=== PATIENT | male | born 1955 | race Caucasian/White ===

== ENCOUNTER → 2016-09-16 | Outpatient (CLI) | payer OTHER ==
[2016-05-01 11:00] VITALS: BP 125/64
[~2016-09-16] MED LIST: ASPI325T4 PO; CETI10CA PO; CETI10TA22 PO; CHOL10003 PO; CYAN10005 PO; GLUC1TAB26 PO; HYDR-2666 PO; MULT-690 PO; OMEG500C PO
[2016-09-16 12:43] LABS: BASO % 0 % (0-3); EOS % 2 % (0-3); HEMATOCRIT 44.7 % (39.0-53.0); LYMPH # 3.8 x10^3/uL (1.0-4.8); LYMPH % 42 % (24-48); MEAN CORPUSCULAR HEMOGLOBIN 32 pg (25-35); MEAN CORPUSCULAR HGB CONC 34 g/dL (31-37); MEAN CORPUSCULAR VOLUME 94 fL (79-100); MONO % 8 % (0-9); NEUT % 47 % (31-73); PLATELET COUNT 217 x10^3/uL (140-400); RED BLOOD COUNT 4.76 x10^6/uL (4.30-5.70); RED CELL DISTRIBUTION WIDTH 13.1 % (11.5-14.5); WHITE BLOOD COUNT 8.9 x10^3/uL (4.0-11.0)
--- NOTE | 2016-09-16 12:46 | EKG ---
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
[2016-09-16 12:49] LABS: ALBUMIN 3.7 g/dL (3.4-5.0); CALCIUM 9.4 mg/dL (8.5-10.1); GFR 75.7; POTASSIUM 4.1 mmol/L (3.5-5.1)
[2016-09-16 12:56] LABS: PROTHROMBIN TIME PATIENT 12.5 SEC (11.7-14.0)
[2016-09-16 12:57] LABS: BILIRUBIN,URINE NEGATIVE (NEG); GLUCOSE,URINE NEGATIVE (NEG); NITRITE,URINE NEGATIVE (NEG); PROTEIN,URINE NEGATIVE (NEG-TRACE); UROBILINOGEN,URINE 0.2 mg/dL (0.2 mg/dL)
[2016-09-16 13:09] LABS: BACTERIA,URINE 0 /HPF (0-FEW); RBC,URINE 0 /HPF (0-2); SQUAMOUS EPITHELIAL CELL,UR OCC /LPF; WBC,URINE 0 /HPF (0-4)
--- NOTE | 2016-09-16 13:30 | RAD ---
Chest, 2 views, 09/16/2016: History: Preop evaluation for shoulder surgery The heart size and pulmonary vascularity are normal. There is tortuosity of the thoracic aorta. No pulmonary infiltrates are seen. There is no evidence of pleural fluid. IMPRESSION: No acute cardiopulmonary abnormality is detected.
== END | disposition home or self-care (01) ==
LOC: SURGPAT 11:33
PROVIDERS: ATTEND Orthopaedic Surgery
DX: Z01.812 Encounter for preprocedural laboratory examination (principal)
CPT/HCPCS: 36415; 71020; 80048; 81001; 82040; 85027; 85610; 85651; 85730; 87086; 87641; 93005

== ENCOUNTER 2016-09-30 10:09 | Inpatient (IN) | payer OTHER ==
[~2016-09-30] VITALS: Ht 172.7 cm; Wt 114.8 kg
[~2016-09-30 10:09] MED LIST changes: +CEFAZOLIN 2GM PREMIX 50 ML IV PRN; +CELECOXIB 200 MG CAPSULE PO PRN; +FENTANYL PF 100 MCG/2 ML VIAL. IV PRN; +HYDROCODONE/APAP 7.5/325MG TABLET. PO PRN; +IV RINGERS,LACTATED 1000ML 1,000 ML IV SCH; +LIDOCAINE 1% 1 ML SYRINGE. ID PRN; +MORPHINE SULFATE 2 MG/ML DISP.SYRIN. IV PRN; +MORPHINE SULFATE 5 MG, KETOROLAC TROMETHAMINE 30 MG, ROPIVacaine 0.5% PF 60 ML, EPINEPH... INT ART ONE; +ONDANSETRON PF 4 MG/2 ML VIAL. IV PRN; +PROCHLORPERAZINE 10 MG/2 ML VIAL. IV PRN; +TRANEXAMIC ACID 1,000 MG in IV NS 50ML -- 1ST BAG INJ ONE; +TRANEXAMIC ACID 1,000 MG in IV NS 50ML -- 2ND BAG INJ ONE
[2016-09-30] MEDS ORDERED: FENTANYL PF 100 MCG/2 ML VIAL. ONE ×2 (10:21→14:46)
[2016-09-30] MEDS ORDERED: LIDOCAINE 2% 100 MG/5 ML DISP.SYRIN. ONE (10:21)
[2016-09-30] MEDS ORDERED: PROPOFOL 20 ML IV ONE (10:21)
[2016-09-30] MEDS ORDERED: SUCCINYLCHOLINE 200 MG/10 ML VIAL. ONE (10:22)
[2016-09-30] MEDS ORDERED: ROCURONIUM 50 MG/5 ML VIAL. ONE (10:22)
[2016-09-30] MEDS ORDERED: EPHEDRINE PF IN SALINE 50 MG/5 ML DISP.SYRIN. IV ONE (12:53)
[2016-09-30] MEDS ORDERED: MORPHINE SULFATE 10 MG/ML VIAL. ONE (13:01)
[2016-09-30] MEDS ORDERED: SEVOFLURANE > 120 MINUTES. IH ONE (13:21)
[2016-09-30] MEDS ORDERED: PHENYLEPHRINE in 0.9% NACL PF 1 MG/10 ML DISP.SYRIN. IV ONE (13:21)
[2016-09-30] MEDS ORDERED: DIPHENHYDRAMINE 50 MG/ML VIAL IV PRN (14:00)
[2016-09-30] MEDS ORDERED: PROCHLORPERAZINE 10 MG/2 ML VIAL. IV PRN (14:00)
[2016-09-30] MEDS ORDERED: MORPHINE SULFATE 4 MG/ML DISP.SYRIN. IV PRN (14:00)
[2016-09-30] MEDS ORDERED: MEPERIDINE PF 25 MG/ML VIAL. IV PRN (14:00)
[2016-09-30] MEDS ORDERED: HYDROMORPHONE 2 MG/ML VIAL. IV PRN (14:00)
[2016-09-30] MEDS ORDERED: FENTANYL PF 100 MCG/2 ML VIAL. IV PRN (14:00)
[2016-09-30] MEDS ORDERED: ONDANSETRON PF 4 MG/2 ML VIAL. ONE (15:40)
[2016-09-30] MEDS ORDERED: NEOSTIGMINE METHYLSULFATE 5 MG/5 ML SYRINGE. ONE (15:42)
[2016-09-30] MEDS ORDERED: GLYCOPYRROLATE 1 MG/5 ML VIAL. ONE (15:42)
--- NOTE | 2016-09-30 16:03 | PDOC ---
BRIEF OPERATIVE NOTE Date: Sep 30, 2016 Pre-Op Diagnosis Right shoulder arthritis Post-Op Diagnosis same Procedure Performed R [facility]SA Surgeon Herlinda Rosario Anesthesia Type: General Blood Loss 125 cc Complications none HERLINDA RANDHAWA MD Sep 30, 2016 16:03
[2016-09-30] MEDS: FENTANYL PF 100 MCG/2 ML VIAL. IV PRN ×2 (16:27→16:34)
--- NOTE | 2016-09-30 16:44 | RAD ---
Right shoulder, 2 views, 09/30/2016: History: Postop evaluation A right shoulder prosthesis is in place. Surgical skin clips and a drain overlie the operative site. There is no evidence of a retained surgical instrument, needle or radiopaque sponge on these 2 views.
[2016-09-30] MEDS ORDERED: IV DEXTROSE 5 %-0.45 % NACL 1,000 ML IV SCH (16:48)
[2016-09-30] MEDS: HYDROMORPHONE 2 MG/ML VIAL. IV PRN ×2 (16:53→17:08)
[2016-09-30] MEDS ORDERED: DEXTROSE 50% 25 GM / 50ML DISP.SYRIN. IV PRN (17:00)
[2016-09-30] MEDS ORDERED: PROCHLORPERAZINE 5 MG TABLET. PO PRN (17:00)
[2016-09-30] MEDS ORDERED: ACETAMINOPHEN 325 MG TABLET. PO PRN (17:00)
[2016-09-30] MEDS ORDERED: 0.9 % SODIUM CHLORIDE 10 ML DISP.SYRIN. IV PRN (17:00)
[2016-09-30] MEDS ORDERED: CALCIUM CARBONATE 500 MG TAB.CHEW PO PRN (17:00)
[2016-09-30] MEDS ORDERED: MORPHINE SULFATE 2 MG/ML DISP.SYRIN. IV PRN (17:00)
[2016-09-30 17:30] VITALS: BP 133/79
[2016-09-30 17:45] VITALS: BP 136/98
[2016-09-30 18:00] VITALS: BP 132/71
[2016-09-30 18:15] VITALS: BP 131/78
[2016-09-30] MEDS: CEFAZOLIN 2GM PREMIX 50 ML IV SCH (18:20)
[2016-09-30 20:15] VITALS: BP 134/89
[2016-09-30 23:04] VITALS: BP 153/89
[2016-10-01] MEDS: CEFAZOLIN 2GM PREMIX 50 ML IV SCH ×2 (00:16→05:38)
[2016-10-01 03:00] VITALS: BP 117/78
[2016-10-01] MEDS: OXYCODONE IR 5 MG TABLET. PO PRN ×4 (05:38→21:43)
[2016-10-01] MEDS ORDERED: MAGNESIUM HYDROXIDE 2,400 MG/30 ML ORAL.SUSP. PO PRN (06:00)
[2016-10-01 06:13] LABS: HEMOGLOBIN 13.2 g/dL (13.0-17.5)
[2016-10-01 06:35] VITALS: BP 130/66
[2016-10-01] MEDS: FERROUS SULFATE 325 MG TABLET PO SCH ×2 (08:40→16:54)
[2016-10-01] MEDS: SENNOSIDES/DOCUSATE 8.6/50MG TABLET. PO SCH (08:40)
[2016-10-01] MEDS: MULTIVITAMIN with MINERAL TABLET. PO SCH (08:40)
--- NOTE | 2016-10-01 09:57 | PDOC ---
ORTHO PROGRESS NOTES Subjective Pain well controlled overnight. No nausea, vomiting, chest pain, shortness of breath. He had some urinary retention overnight, and a brandon placed, but it was removed this am and he has been able to void since. Post-op Day: 1 Procedure Right total shoulder arthroplasty Vitals Vital Signs Date Time Temp Pulse Resp B/P Pulse Ox O2 Delivery O2 Flow Rate FiO2 10/01/16 06:35 97.4 80 20 130/66 97 Room Air 97.4 10/01/16 03:00 2.0 Labs HV= 200 cc output over the last two shifts. Last drained at 530 am, minimal output since. Laboratory Tests Test 10/01/16 05:45 Hemoglobin 13.2g/dL (13.0-17.5) Hematocrit 39.0% (39.0-53.0) Mean Corpuscular Hemoglobin Concent 34g/dL (31-37) Laboratory Tests Test 10/01/16 05:45 Hemoglobin 13.2g/dL (13.0-17.5) Hematocrit 39.0% (39.0-53.0) Mean Corpuscular Hemoglobin Concent 34g/dL (31-37) X-Rays Xrays of the right shoulder reveal a well placed total shoulder arthroplasty no lucency around the glenoid. No adjacent fractures or dislocations. Notes R shoulder dressing clean, dry, and intact with HV in place to suction, minimal ss drainage. Sensation intact to light touch in bilateral upper extremities in the Axillary, Radial, Ulnar, and Median nerve distribution. 5/5 strength distally in the EPL/ FPL/WE/FF/IO muscles. 2+ radial pulses. No swelling or edema distally, in sling. Problems: (1) Primary osteoarthritis, right shoulder Assessment and Plan The patient is POD 1 status post R total shoulder arthroplasty -He is currently doing well. Will add 1 more roxicodone for pain so he can have 1-2 tablets q4 hours as needed. -Will check his drain output later today and then change the dressing. -PHYSICAL THERAPY/OT: Supine passive FE, and external rotation to neutral -He can follow-up in the office in 1 week for staple removal. HERLINDA RANDHAWA MD Oct 01, 2016 09:57
--- NOTE | 2016-10-01 12:23 | DISCH ---
DISCHARGE INSTRUCTIONS Condition on Discharge Condition on Discharge: Stable Activity After Discharge Activity Instructions for Disc: Other, see below Diet after Discharge Diet after Discharge: Regular Wound Incision Care Wound/Incision Care: Ice to area for comfort, Do not change dressing Contacting the after DC Call your doctor for: Fever greater than 100 A/P -Please call the clinic at [phone] to schedule your first post-operative appointment for staple removal one week after surgery. -Please keep your incision clean, dry, and intact. Please keep the dressing on your incision that was placed in the hospital. You may shower 24 hours after your drain was removed (if you had one) as long as the waterproof dressing stays intact. Do not let the incision get wet prior to staple or suture removal. Do not soak or tub bathe until instructed to do so. -Please continue to perform your stretches as you were shown in the hospital. Be sure you do them exactly as you were shown, and call the office if you have any questions about the exercises. -Please continue the range of motion restrictions that you were instructed in the hospital. You should keep your elbow in front of you as instructed. -Feel free to take your sling off while in a sitting position and allow your elbow to straighten. Perform the hand, wrist, elbow exercises as your were shown in the hospital to prevent hand and arm stiffness and swelling. -Please call the office or go to your nearest emergency room if you have any of the following: Chest pain ,shortness of breath, difficulty breathing, calf or leg pain or swelling, bleeding or drainage from the incision, pain/ nausea/ vomiting/ itching / constipation that is not controlled with medications, if you have a temperature of greater than 101.5, if you are unable to pee normally. Problems: (1) Primary osteoarthritis, right shoulder HERLINDA RANDHAWA MD Oct 01, 2016 12:23
--- NOTE | 2016-10-01 12:33 | PDOC3 ---
Discharge Summary Visit Information Date of Admission: Sep 30, 2016 Date of Discharge: Oct 01, 2016 Admitting Diagnosis: Right shoulder osteoarthritis Final Diagnosis Problems Medical Problems: (1) Primary osteoarthritis, right shoulder Status: Acute Brief Hospital Course Allergies Allergies Coded Allergies Type Severity Reaction Last Updated Verified No Known Drug Allergies 09/30/16 No Vital Signs Vital Signs Date Time Temp Pulse Resp B/P Pulse Ox O2 Delivery O2 Flow Rate FiO2 10/01/16 09:41 Room Air 10/01/16 06:35 97.4 80 20 130/66 97 97.4 10/01/16 03:00 2.0 Lab Results Laboratory Tests Test 10/01/16 05:45 Hemoglobin 13.2g/dL (13.0-17.5) Hematocrit 39.0% (39.0-53.0) Mean Corpuscular Hemoglobin Concent 34g/dL (31-37) Laboratory Tests Test 10/01/16 05:45 Hemoglobin 13.2g/dL (13.0-17.5) Hematocrit 39.0% (39.0-53.0) Mean Corpuscular Hemoglobin Concent 34g/dL (31-37) Brief Hospital Course The patient is a 61 year old who presented with shoulder osteoarthritis, for elective right total shoulder arthroplasty. The patient underwent shoulder arthroplasty under general anesthesia the day of admission. 24 hours of perioperative antibiotics and mechanical DVT prophylaxis with early ambulation were utilized. Postoperatively physical therapy and case management were consulted. The patient tolerated physical therapy supine FE and ER to neutral. The patient had a drain that was placed intraoperatively and put out 200 cc prior to pulling it postoperative day 1. He had some urinary retention requiring a catheter overnight, however POD 1 he was able to void without it. His postop hb was stable at 13. His pain was well controlled with oral pain medications and he was found to be stable for discharge. Discharge Information Condition at Discharge: Stable Follow Up: Weeks (1) Disposition/Orders: D/C to Home Scheduled Aspirin (Aspirin) 1 TAB PO DAILY (Reported) Cetirizine Hcl (Zyrtec) 1 TAB PO DAILY (Reported) Cholecalciferol (Vitamin D3) (Vitamin D3) 1 TAB PO DAILY (Reported) Cyanocobalamin (Vitamin B-12) (Vitamin B-12) 1 TAB PO DAILY (Reported) Gluc/Bubba-Msm#2/C/D3/José Miguel/Born (Jigjcyvdoo-Xxcifhxwxcm-Whs Tab) 1 EACH PO DAILY (Reported) [place]-3 Fatty Acids (Fish Oil) 1,000 MG PO DAILY (Reported) Miscellaneous Medications Multivit-Min/FA/Lycopen/Lutein (Centrum Silver Men Tablet) 1 EACH PO (Reported) Patient Instructions Patient Instructions Patient Instructions 1 lb weight limit on the operative arm. Keep dressing dry and intact. F/U with [facility] in 7-10 days. Call for appointment. HERLINDA RANDHAWA MD Oct 01, 2016 12:33
[2016-10-01 15:00] VITALS: BP 154/79
[2016-10-01] MEDS ORDERED: BISACODYL 10 MG SUPP.RECT PR PRN (16:00)
[2016-10-01 18:19] VITALS: BP 137/65
[2016-10-01 19:20] VITALS: BP 133/70
[2016-10-02] MEDS: OXYCODONE IR 5 MG TABLET. PO PRN ×2 (05:50→10:55)
[2016-10-02 06:39] VITALS: BP 135/78
[2016-10-02 07:44] LABS: HEMATOCRIT 39.5 % (39.0-53.0); HEMOGLOBIN 13.5 g/dL (13.0-17.5)
[2016-10-02] MEDS: FERROUS SULFATE 325 MG TABLET PO SCH (08:47)
[2016-10-02] MEDS: MULTIVITAMIN with MINERAL TABLET. PO SCH (08:47)
[2016-10-02] MEDS: SENNOSIDES/DOCUSATE 8.6/50MG TABLET. PO SCH (08:47)
[2016-10-02] MEDS ORDERED: HYDR25CA PO (10:43)
[2016-10-02] MEDS ORDERED: DOCU-27 PO (10:44)
[2016-10-02] MEDS ORDERED: OXYC5CAP3 PO (10:46)
[2016-10-02] MEDS ORDERED: TRAM50TA PO (10:46)
[2016-10-02 10:50] VITALS: BP 134/82
--- NOTE | 2016-10-03 16:54 | PATHOLOGY ---
PATHOLOGY REPORT * * * * * * * * FINAL DIAGNOSIS: Segments of bone and soft tissue, right shoulder: - Advanced degenerative arthritis. (JPM:; d/t: 10/03/16) REPORT ELECTRONICALLY SIGNED BY: Satish Rice M.D. DATE/TIME: 10/03/2016 16:54 * * * * * * * * GROSS PATHOLOGY: The specimen is received in formalin labeled "Donny Saenz, right shoulder bone and tissue". Received is a dome-shaped segment of light acevedo bone 5.5 x 5.5 x 2.1 cm in greatest dimensions. The articular surface is light acevedo and granular in appearance displaying evidence of eburnation. Also received within the specimen container are multiple segments of white-acevedo fibrous soft tissue admixed with fragments of bone measuring 5.5 x 5.4 x 1.4 cm in aggregate dimensions. The specimen is submitted representatively in cassette A1, following decalcification. (CAA; 10/02/2016) INITIAL CPT CODE(S): A; 95476, 55650 Professional services performed [place] [facility] [address] Technical services performed by [facility] at [address] [place] [address] [address], [place] [address]. SPECIMEN(S) RECEIVED: A.Right shoulder bone and tissue CLINICAL HISTORY: None provided PATIENT: DONNY SAENZ /AGE: 2 1955 (Age: 61) PATIENT #: [id number] ALT CASE #: SPECIMEN COLLECTION DATE: 09/30/2016 SPECIMEN RECEIVED DATE: 10/01/2016 [facility] - [address] [place] [address] - PHONE: [phone] * * * END OF REPORT * * *
--- NOTE | 2016-10-04 18:30 | PDOC4 ---
Operative Note Operative Note Operative Note Date of Operation: 09.30.2016 Preoperative Diagnosis: 1. Right shoulder osteoarthritis 2. Right shoulder biceps tendinitis Postoperative Diagnosis: 1. Right shoulder osteoarthritis 2. Right shoulder biceps tendinitis Procedure Performed: 1. Right Total Shoulder Replacement, CPT 91699 2. Right shoulder open biceps tenodesis, CPT 50640 Surgeon: Lila Randhawa MD Laundry Superintendent: none Anesthesia: General Estimated Blood Loss: 125cc Complications: None Implant: MediaWheel Simpliciti Stemless prosthesis size 3, 48 x 15 mm humeral head, 48 cemented cortilock pegged glenoid. Indications: The patient is a 61 year old right-hand dominant male with longstanding right shoulder pain and stiffness. He has failed conservative treatment, and presents now for the above said procedure after the risks and benefits were explained. Operative Procedure: The patient was identified and taken to the operating room. IV antibiotics were given preoperatively. The patient was placed under adequate general anesthesia in the beach chair position, the right shoulder and arm were prepped and draped in standard surgical fashion. A deltopectoral incision was made down through skin and subcutaneous tissue. The patient had a very large anterior deltoid. The deltopectoral interval was mobilized, subdeltoid adhesions were bluntly released. The bicipital sheath was then opened, revealing a diseased biceps tendon. The tendon was tenodesed to the pectoralis sheath with a #0 Ethibond suture and the intra-articular portion was excised. This completes the open biceps tenodesis, CPT 55040. The subscapularis tendon was removed from the humerus at the bicipital groove in one layer. Traction sutures were placed, and the subscapularis was then released with the inferior capsule and the shoulder was dislocated into the field. Peripheral osteophytes, of which there were many, were resected, then a humeral ostetomy with a 135 degree neck -shaft angle was created with a sagittal saw along the insertion of the rotator cuff. Several loose bodies were removed from the inferior capsule and from beneath the conjoined tendon. After the osteotomy there was a fingerbreadth of humeral bone remaining proximal to the posterior cuff insertion. The center guidepin was inserted using a size 3. The humerus was planed, blazed, and the trial component was placed. At that time a trial head was placed to estimate the size. It was removed and the metal protector plate was placed onto the trial prosthesis. Attention was then turned to the glenoid. A complete capsular release was performed and then the glenoid was prepared in standard technique with mild anteversion reaming to lower the high side. Bone graft was placed around the center cortilock peg and then the cemented pegged glenoid was placed and held until the cement cured. Trial heads were used and the 48 mm head was chosen. This had good stability and translation. All trial components were removed. 4 # 5 nonabsorable sutures were passed through the humerus lateral to the bicipital groove. The real size 3 prosthesis was placed with the 48 x 15 mm head. The shoulder was reduced and was stable. The subscapularis peel was repaired by passing the #5 sutures through the subscapularis in a modified coco rosy fashion. The subscapularis repair was tested and external rotation to 30 was achieved without any tension on the repair. Local joint juice was infused into the deep and subcutaneous tissues. Closure was performed in layers with brock for skin after pulse lavage. Sterile dressings and shoulder immobilizer were applied. The patient was awakened from anesthesia, completing the right total shoulder arthroplasty, CPT 22325. He was transferred to the stretcher and taken to the recovery room in stable condition. I was present for the entire case. LILA RANDHAWA MD Oct 04, 2016 18:30
== END 2016-10-02 11:05 | disposition home or self-care (01) | DRG 483 ==
LOC: OPSVCIP 10:09 → 4 SOUTHEST 17:21
PROVIDERS: ADMIT Orthopaedic Surgery; ATTEND Orthopaedic Surgery
PROC: 0LS30ZZ Reposition Right Upper Arm Tendon, Open Approach (ICD-10-PCS; 2016-09-30)
PROC: 0RRJ0JZ Replacement of Right Shoulder Joint with Synthetic Substitute, Open Approach (ICD-10-PCS; principal; 2016-09-30 12:00)
DX: M19.011 Primary osteoarthritis, right shoulder (principal); R33.9 Retention of urine, unspecified; M75.21 Bicipital tendinitis, right shoulder; I10 Essential (primary) hypertension; E78.00 Pure hypercholesterolemia, unspecified; Z90.49 Acquired absence of other specified parts of digestive tract; Z79.82 Long term (current) use of aspirin
CPT/HCPCS: 36415; 73030; 85014; 85018; 86850; 86900; 86901; 88304; 88311; C1713; J0171; J0330; J0690; J1170; J1885; J2270; J2370; J2405; J2704; J2710; J2795; J3010; J3490; J7120; 97110; 97116; 97535; C1769

== ENCOUNTER 2016-10-06 12:34 | Emergency (ER) | payer OTHER ==
[~2016-10-06] VITALS: Ht 172.7 cm; Wt 114.8 kg
[~2016-10-06 12:34] MED LIST changes: -CEFAZOLIN 2GM PREMIX 50 ML IV PRN; -CELECOXIB 200 MG CAPSULE PO PRN; +DOCU-27 PO; -FENTANYL PF 100 MCG/2 ML VIAL. IV PRN; +HYDR25CA PO; -HYDROCODONE/APAP 7.5/325MG TABLET. PO PRN; -IV RINGERS,LACTATED 1000ML 1,000 ML IV SCH; -LIDOCAINE 1% 1 ML SYRINGE. ID PRN; -MORPHINE SULFATE 2 MG/ML DISP.SYRIN. IV PRN; -MORPHINE SULFATE 5 MG, KETOROLAC TROMETHAMINE 30 MG, ROPIVacaine 0.5% PF 60 ML, EPINEPH... INT ART ONE; -ONDANSETRON PF 4 MG/2 ML VIAL. IV PRN; +OXYC5CAP3 PO; -PROCHLORPERAZINE 10 MG/2 ML VIAL. IV PRN; +TRAM50TA PO; -TRANEXAMIC ACID 1,000 MG in IV NS 50ML -- 1ST BAG INJ ONE; -TRANEXAMIC ACID 1,000 MG in IV NS 50ML -- 2ND BAG INJ ONE
--- NOTE | 2016-10-06 13:19 | PHYS DOC ---
Past Medical History Past Medical History: Arthritis Past Surgical History: Appendectomy, Other Additional Past Surgical Histo: RIGHT SHOULDER REPLACEMENT 09/2016,LAP BAND 2009 Alcohol Use: None Drug Use: None Adult General Chief Complaint Chief Complaint: POST-OP PROBLEM HPI HPI 61-year-old male who is status post right total shoulder replacement by Dr. Quiroga on Friday who is now developed significant right medial knee pain that was noted today. He has some warmth that he also notes to that area. He denies any trauma to this region. Patient has been keeping both extremities elevated but denies noticing any pain prior to this morning. He denies any history of blood clots. Patient has had a significant lower extremity cellulitis approximately 2 years ago. With this episode, he denies any nausea or vomiting. He denies any fever or chills. He denies any chest pain or SOB. Pt has been prescribed pain meds for his shoulder and states his pain has been controlled in the right shoulder. Review of Systems Review of Systems Constitutional: Denies fever or chills [] Eyes: Denies change in visual acuity, redness, or eye pain [] HENT: Denies nasal congestion or sore throat [] Respiratory: Denies cough or shortness of breath [] Cardiovascular: No additional information not addressed in HPI [] GI: Denies abdominal pain, nausea, vomiting, bloody stools or diarrhea [] : Denies dysuria or hematuria [] Musculoskeletal: Denies back pain or joint pain [] Integument: Denies rash or skin lesions [] Neurologic: Denies headache, focal weakness or sensory changes [] Endocrine: Denies polyuria or polydipsia [] Allergies Allergies Allergies Coded Allergies Type Severity Reaction Last Updated Verified No Known Drug Allergies 09/30/16 No Physical Exam Physical Exam Constitutional: Well developed, well nourished, no acute distress, non-toxic appearance. [] HENT: Normocephalic, atraumatic, bilateral external ears normal, oropharynx moist, no oral exudates, nose normal. [] Eyes: PERRLA, EOMI, conjunctiva normal, no discharge. [] Neck: Normal range of motion, no tenderness, supple, no stridor. [] Cardiovascular:Heart rate regular rhythm, no murmur [] Lungs & Thorax: Bilateral breath sounds clear to auscultation [] Abdomen: Bowel sounds normal, soft, no tenderness, no masses, no pulsatile masses. [] Skin: Warm, dry, no erythema, no rash. [] Back: No tenderness, no CVA tenderness. [] Extremities: Small focal area warmth and pain to the right medial knee but no obvious erythema is seen, no cyanosis, no clubbing, ROM intact, no edema. [] Neurologic: Alert and oriented X 3, normal motor function, normal sensory function, no focal deficits noted. [] Psychologic: Affect normal, judgement normal, mood normal. [] Current Patient Data Vital Signs Vital Signs Date Time Temp Pulse Resp B/P Pulse Ox O2 Delivery O2 Flow Rate FiO2 10/06/16 14:30 77 18 141/78 99 Room Air 10/06/16 12:54 98.4 98.4 EKG EKG [] Radiology/Procedures Radiology/Procedures Venous doppler ultrasound: Indication pain. Particularly medially around the knee Grayscale color Doppler and spectral imaging was performed. The examination was targeted to the veins of the right lower extremity. The common femoral, femoral and popliteal vessels demonstrate normal flow compressibility and augmentation. No thrombus is seen in the deep system. The visualized calf veins appeared unremarkable. The left common femoral vein also appeared normal Note was made during the examination of clotted superficial veins in the area of redness hyperemia and pain. These findings are consistent with superficial thrombophlebitis. Course & Med Decision Making Course & Med Decision Making Pertinent Labs and Imaging studies reviewed. (See chart for details) This 61-year-old male with significant right medial knee warmth and tenderness will have a venous ultrasound rule out any acute DVT. If this is negative symptoms are likely related to an early cellulitis and I will be placing him on antibiotic therapy for this. There is no indication to obtain any IV or blood work. Venous Doppler ultrasound was not positive for any DVT but did show findings consistent with a superficial thrombophlebitis. For this I instructed the patient use warm compresses and take aspirin therapy and have a repeat Doppler in the next 2-3 days to rule out any chance of DVT development. This was also discussed with the orthopedic surgeon, Dr. Quiroga who inquired about her patient coming in to the hospital. There is no significant erythema or cellulitic change that was seen on my exam so I will not be treating with antibiotics at this time. Pt was given strict instruction return next several days if he develops any increased swelling or warmth and redness to the area. A prescription for aspirin was given. Dragon Disclaimer Dragon Disclaimer This electronic medical record was generated, in whole or in part, using a voice recognition dictation system. Departure Departure Impression: Primary Impression: Superficial thrombophlebitis Disposition: HOME, SELF-CARE Admitting Physician: Other Condition: STABLE Referrals: MAYANK SAAVEDRA DO (PCP) Additional Instructions: Please obtain another venous doppler of the lower extremity in a few days and take a full 325 mg ASA until you can receive follow up in the next 2-3 days. Return if there is any increased swelling or you notice any new redness. Return if you develop any fever. Scripts Aspirin 325 Mg [id number] Mg PO DAILY #10 Prov:CLEO LEE DO 10/06/16 CLEO LEE DO Oct 06, 2016 13:19
--- NOTE | 2016-10-06 13:57 | RAD ---
Indication pain. Particularly medially around the knee Grayscale color Doppler and spectral imaging was performed. The examination was targeted to the veins of the right lower extremity. The common femoral, femoral and popliteal vessels demonstrate normal flow compressibility and augmentation. No thrombus is seen in the deep system. The visualized calf veins appeared unremarkable. The left common femoral vein also appeared normal Note was made during the examination of clotted superficial veins in the area of redness hyperemia and pain. These findings are consistent with superficial thrombophlebitis. IMPRESSION: No evidence of deep venous thrombosis. Clotted superficial veins compatible with superficial thrombophlebitis
[2016-10-06 14:30] VITALS: BP 141/78
[2016-10-06] MEDS ORDERED: ASPI325T4 PO (14:57)
== END 2016-10-06 15:05 | disposition home or self-care (01) ==
LOC: ER 12:34
DX: I80.9 Phlebitis and thrombophlebitis of unspecified site (principal); M25.561 Pain in right knee; M25.511 Pain in right shoulder; M19.90 Unspecified osteoarthritis, unspecified site; Z90.49 Acquired absence of other specified parts of digestive tract; Z96.611 Presence of right artificial shoulder joint; Z98.84 Bariatric surgery status
CPT/HCPCS: 93971; 99284